=== PATIENT | female | born 1995 | race Caucasian/White ===

== ENCOUNTER 2017-08-07 22:19 | Emergency (ER) | payer OTHER ==
[2017-08-07] MEDS ORDERED: NS 1,000 ML IV ONE (22:52)
--- NOTE | 2017-08-07 22:52 | EDPHY ---
H & P Stated Complaint: RLQ abd pain for 3 days and bloating Time Seen by Provider: 08/07/17 22:51 HPI/ROS: HPI CHIEF COMPLAINT: Abdominal pain HISTORY OF PRESENT ILLNESS: Patient very pleasant 22-year-old female she is otherwise healthy does not take any daily medications except control she presents emergency room with abdominal pain. Patient reports over the last 2-3 days she has had increasing abdominal pain or lower abdomen with abdominal distention and right lower quadrant pain. Pain has gotten worse in her right lower quadrant. She denies any urinary symptoms, denies back pain, denies fever , denies vomiting she had normal bowel movement yesterday and today, additionally she has been eating. No history of ovarian cyst. Denies being . Last menstrual period was a few days ago. She has irregular menses. Past Medical History: Denies significant medical history Past Surgical History: Denies significant surgical history Social History: Denies daily use of drugs alcohol tobacco. Family History: Noncontributory ROS REVIEW OF SYSTEMS: A comprehensive 10 point review of systems is otherwise negative aside from elements mentioned in the history of present illness. Exam Constitutional triage nursing summary reviewed, vital signs reviewed, awake/ alert. Eyes normal conjunctivae and sclera, EOMI, PERRLA. HENT normal inspection, atraumatic, moist mucus membranes, no epistaxis, neck supple/ no meningismus, no raccoon eyes. Respiratory clear to auscultation bilaterally, normal breath sounds, no respiratory distress, no wheezing. Cardiovascular rate normal, regular rhythm, no murmur, no edema, distal pulses normal. Gastrointestinal tender palpation right lower quadrant, no peritoneal signs,, no rebound, no guarding, normal bowel sounds, no distension, no pulsatile mass. Genitourinary no CVA tenderness. Musculoskeletal no midline vertebral tenderness, full range of motion, no calf swelling, no tenderness of extremities, no meningismus, good pulses, neurovascularly intact. Skin pink, warm, & dry, no rash, skin atraumatic. Neurologic awake, alert and oriented x 3, AAOx3, moves all 4 extremities equally, motor intact, sensory intact, CN II-XII intact, normal cerebellar, normal vision, normal speech. Psychiatric normal mood/affect. Heme/Lymph/Immune no lymphadenopathy. Differential diagnosis includes but is not limited to and in no particular order : Bowel obstruction, appendicitis, gallbladder disease, diverticulitis, colitis , enteritis, perforated viscus, gastritis, GERD, esophagitis, urinary tract infection, pyelonephritis, kidney stones Medical Decision Making: Plan for this patient IV establishment IV fluid bolus , check basic blood work, urinalysis and electrolytes, CT scan abdomen pelvis with IV contrast rule out appendicitis. Check test. Re-evaluate. Re-evaluation: CT scan abdomen pelvis with IV contrast called to me by Dr. Joe Sin, this shows left ovarian cyst, additionally jejunum mid abdomen appears slightly inflamed possibly enteritis. However able to see the appendix and no evidence of acute appendicitis. I have updated the patient about her CT results. Will plan on a pelvic ultrasound to rule out left ovarian cyst. Hemorrhagic cyst. 0107: Spoke with OBGYN and discuss the case with her extensively. Discussed the ultrasound findings and images. She does not feel that this patient has ovarian torsion given that she is not writhing in pain and declined pain medicine here. She does not feel this patient has ovarian torsion given the history review of systems and exam. Ultrasound called to me by Dr. Griffin shows left large ovarian cyst. There is arterial blood flow. Concern for torsion given the size of the cyst. 0140: Re-evaluate the patient she is complaining of worsening pain I have ordered her IV Toradol for pain control. Spoke with OBGYN again Dr. Nascimento, will come and see and evaluate the patient in the ER. [id number]: Dr. Nascimento, has seen evaluated the patient emergency room. Patient is eager to be discharged wants to go home. Dr. Nascimento, does not feel that she is ovarian torsion feel safe that she can go home. She did see and examine interview her. I discussed all results with her. I recommend she returns emergency room she develops worsening abdominal pain fever vomiting. Follow up on outpatient basis with OBGYN for ovarian cyst. Return emergency room if there is worsening abdominal pain fever vomiting she understands Source: Patient - Personal History LMP (Females 10-55): 1-7 Days Ago Current Tetanus/Diphtheria Vaccine: Yes Current Tetanus Diphtheria and Acellular Pertussis (TDAP): Yes - Medical/Surgical History Hx Asthma: No Hx Chronic Respiratory Disease: No Hx Diabetes: No Hx Cardiac Disease: No Hx Renal Disease: No Hx Cirrhosis: No Hx Alcoholism: No Hx HIV/AIDS: No Hx Splenectomy or Spleen Trauma: No Other PMH: denies - Social History Smoking Status: Never smoked Constitutional: Initial Vital Signs Temperature (C) 37.3 C 08/07/17 22:22 Heart Rate 93 08/07/17 22:22 Respiratory Rate 16 08/07/17 22:22 Blood Pressure 113/69 08/07/17 22:22 O2 Sat (%) 97 08/07/17 22:22 O2 Delivery Mode Room Air Allergies/Adverse Reactions: cephalexin [From Keflex] Allergy (Verified 08/07/17 22:25) Penicillins Allergy (Verified 08/07/17 22:25) Home Medications: Medication Instructions Recorded Birthcontrol 08/07/17 Levothyroxine 08/07/17 Medical Decision Making - Diagnostics Imaging Results: Imaging Impressions Abdomen CT 08/07/17 22:56 Impression: 1. Mild wall thickening and mesenteric stranding associated with mesentery in the central abdomen, suggesting enteritis. 2. Indeterminant 5 cm complex cystic structure in the left adnexa which could be related to a hemorrhagic cyst, dermoid, or other etiology. Pelvic ultrasound is recommended for further evaluation. 3. Additional findings as above. Findings discussed with Rex Kumari MD 08/07/2017 at 23:58. - Data Points Laboratory Results: Laboratory Results 08/07/17 22:53 08/07/17 22:53 08/07/17 08/07/17 08/07/17 23:25 22:53 22:53 WBC RBC Hgb Hct MCV MCH MCHC RDW Plt Count MPV Neut % (Auto) Lymph % (Auto) Moody % (Auto) Eos % (Auto) Baso % (Auto) Nucleat RBC Rel Count Absolute Neuts (auto) Absolute Lymphs (auto) Absolute Monos (auto) Absolute Eos (auto) Absolute Basos (auto) Absolute Nucleated RBC Immature Gran % Immature Gran # PT INR APTT VBG Lactic Acid Sodium 138 mEq/L mEq/L (135-145) Potassium 4.2 mEq/L mEq/L (3.3-5.0) Chloride 99 mEq/L mEq/L (97-110) Carbon Dioxide 26 mEq/l mEq/l (22-31) Anion Gap 13 mEq/L mEq/L (8-16) BUN 11 mg/dL mg/dL (7-23) Creatinine 0.9 mg/dL mg/dL (0.6-1.0) Estimated GFR > 60 Glucose 103 mg/dL H mg/dL (70-100) Calcium 9.1 mg/dL mg/dL (8.5-10.4) Total Bilirubin 0.7 mg/dL mg/dL (0.1-1.4) Conjugated Bilirubin 0.4 mg/dL mg/dL (0.0-0.5) Unconjugated Bilirubin 0.3 mg/dL mg/dL (0.0-1.1) AST 21 IU/L IU/L (14-46) ALT 24 IU/L IU/L (9-52) Alkaline Phosphatase 73 IU/L IU/L (38-126) Total Protein 7.7 g/dL g/dL (6.3-8.2) Albumin 4.1 g/dL g/dL (3.5-5.0) Lipase 26 IU/L IU/L (23-300) Beta HCG, Qual NEGATIVE Urine Color YELLOW Urine Appearance CLEAR Urine pH 7.0 (5.0-7.5) Ur Specific Hanson 1.009 (1.002-1.030) Urine Protein NEGATIVE (NEGATIVE) Urine Ketones NEGATIVE (NEGATIVE) Urine Blood NEGATIVE (NEGATIVE) Urine Nitrate NEGATIVE (NEGATIVE) Urine Bilirubin NEGATIVE (NEGATIVE) Urine Urobilinogen NEGATIVE EU EU (0.2-1.0) Ur Leukocyte Esterase NEGATIVE (NEGATIVE) Urine Glucose NEGATIVE (NEGATIVE) 08/07/17 08/07/17 08/07/17 22:53 22:53 22:53 WBC 12.90 10^3/uL H 10^3/uL (3.80-9.50) RBC 4.17 10^6/uL L 10^6/uL (4.18-5.33) Hgb 13.0 g/dL g/dL (12.6-16.3) Hct 38.1 % % (38.0-47.0) MCV 91.4 fL fL (81.5-99.8) MCH 31.2 pg pg (27.9-34.1) MCHC 34.1 g/dL g/dL (32.4-36.7) RDW 13.2 % % (11.5-15.2) Plt Count 336 10^3/uL 10^3/uL (150-400) MPV 9.8 fL fL (8.7-11.7) Neut % (Auto) 80.5 % H % (39.3-74.2) Lymph % (Auto) 11.6 % L % (15.0-45.0) Moody % (Auto) 6.4 % % (4.5-13.0) Eos % (Auto) 0.8 % % (0.6-7.6) Baso % (Auto) 0.2 % L % (0.3-1.7) Nucleat RBC Rel Count 0.0 % % (0.0-0.2) Absolute Neuts (auto) 10.40 10^3/uL H 10^3/uL (1.70-6.50) Absolute Lymphs (auto) 1.49 10^3/uL 10^3/uL (1.00-3.00) Absolute Monos (auto) 0.82 10^3/uL H 10^3/uL (0.30-0.80) Absolute Eos (auto) 0.10 10^3/uL 10^3/uL (0.03-0.40) Absolute Basos (auto) 0.03 10^3/uL 10^3/uL (0.02-0.10) Absolute Nucleated RBC 0.00 10^3/uL 10^3/uL (0-0.01) Immature Gran % 0.5 % % (0.0-1.1) Immature Gran # 0.06 10^3/uL 10^3/uL (0.00-0.10) PT 12.9 SEC SEC (12.0-15.0) INR 0.95 (0.83-1.16) APTT 33.1 SEC SEC (23.0-38.0) VBG Lactic Acid 0.7 mmol/L mmol/L (0.7-2.1) Sodium Potassium Chloride Carbon Dioxide Anion Gap BUN Creatinine Estimated GFR Glucose Calcium Total Bilirubin Conjugated Bilirubin Unconjugated Bilirubin AST ALT Alkaline Phosphatase Total Protein Albumin Lipase Beta HCG, Qual Urine Color Urine Appearance Urine pH Ur Specific Hanson Urine Protein Urine Ketones Urine Blood Urine Nitrate Urine Bilirubin Urine Urobilinogen Ur Leukocyte Esterase Urine Glucose Medications Given: Discontinued Medications Sodium Chloride (Ns) 1,000 mls @ 0 mls/hr IV EDNOW ONE; Wide Open PRN Reason: Protocol Stop: 08/07/17 22:53 Last Admin: 08/07/17 23:19 Dose: 1,000 mls Ketorolac Tromethamine (Toradol) 15 mg IVP EDNOW ONE Stop: 08/08/17 01:29 Last Admin: 08/08/17 01:50 Dose: 15 mg Ondansetron HCl (Zofran) 4 mg IVP EDNOW ONE Stop: 08/08/17 01:52 Last Admin: 08/08/17 01:53 Dose: 4 mg Departure - Departure Disposition: Home, Routine, Self-Care Clinical Impression: Enteritis Abdominal pain Qualifiers: Abdominal location: unspecified location Qualified Code(s): R10.9 - Unspecified abdominal pain Ovarian cyst Qualifiers: Laterality: left Qualified Code(s): N83.202 - Unspecified ovarian cyst, left side Condition: Good Instructions: Ovarian Cyst (ED), Acute Abdominal Pain (ED) Additional Instructions: 1. Return emergency room if you have worsening abdominal pain fever vomiting. Referrals: NONE *PRIMARY CARE P,. [Primary Care Provider] - As per Instructions Gabriella Nascimento DO [Doctor of Osteopathy] - As per Instructions
[2017-08-07 23:03] LABS: PLATELET COUNT 336 10^3/uL (150-400)
[2017-08-07 23:13] LABS: INR 0.95 (0.83-1.16); PROTIME(PATIENT) 12.9 SEC (12.0-15.0)
[2017-08-07] MEDS ORDERED: IOPAMIDOL (ISOVUE-300) 100 ML BTL ONE (23:22)
[2017-08-08] MEDS ORDERED: KETOROLAC 15 MG/1 ML SDV IVP ONE (01:28)
[2017-08-08] MEDS ORDERED: ONDANSETRON 4 MG/2 ML VIAL IVP ONE (01:51)
[2017-08-08 02:59] VITALS: BP 108/65
--- NOTE | 2017-08-08 04:10 | GCON ---
[f rep st] CONSULTATION ER CONSULTATION DATE OF CONSULTATION: 08/08/2017 REASON FOR CONSULTATION: Abdominal pain with ovarian cyst. INDICATIONS: This patient is a 22-year-old 0, who presented to the emergency room with compl aint of a 3-day history of mild abdominal pain and bloating. Patient took ibuprofen once, but it has not been bad enough to need any medication since then. She states there are some episodes of the pa in getting worse; however, it has remained pretty constant over the last 3 days, so she decided to co me into the emergency room. The patient was asleep in her room when I came in. She had received Tor adol as the only pain medicine prior to being evaluated. Patient denies any nausea, vomiting, fevers , or chills. She denies any changes in her bowel habits. She denies any pain with urination. She i s not currently sexually active. The patient had imaging, which showed mild wall thickening and mese nteric stranding associated with the mesentery, possibly suggestive of enteritis and a 5 cm complex c ystic structure on the left adnexal. A pelvic ultrasound was performed, which showed a normal uterus , left ovarian cyst, possible ovarian torsion. MEDICAL HISTORY: Significant for hypothyroidism. MEDICATIONS: Levothyroxine and control pills. SURGICAL HISTORY: None. ALLERGIES: Penicillin and cephalexin. SOCIAL HISTORY: Patient is a student. She lives in [place]. She denies tobacco or drug use. S he does drink alcohol socially. FAMILY MEDICAL HISTORY: Noncontributory. OBSTETRICAL/GYNECOLOGIC HISTORY: Menarche age 14. She occasionally does not have periods because of her control pills. Otherwise are unremarkable off control pills. She is a 0. She denies any history of any sexually transmitted diseases. PHYSICAL EXAM: VITAL SIGNS: Stable. GENERAL APPEARANCE: Alert and oriented x3. PSYCH: Shows ap ropriate affect. MUSCULOSKELETAL: Grossly intact. NEURO: Mostly intact. NECK: Mobile and supple . HEART: Rate is regular, regular. LUNGS: Clear to auscultation bilaterally. ABDOMEN: Soft, non distended, nontender. EXTREMITIES: Reveal no calf tenderness or edema. PELVIC: Reveals a mobile m idposition uterus with no adnexal tenderness. LABS: Hemoglobin is 13, hematocrit is 38, white count is 12.9, platelets are 336. Urinalysis is neg ative. HCG is negative. REVIEW OF SYSTEMS: 10-point review of systems is negative with the exception of the above-mentioned pertinent positives. ASSESSMENT AND PLAN: 22-year-old 0 with abdominal pain and an ovarian cyst. I do not feel t hat this is gynecologic in origin, so other etiologies should be ruled out. The patient has a very b enign exam and was sound asleep when I entered the room. We discussed followup torsion precautions a nd follow up with us to re-evaluate the ovarian cyst in several weeks or to follow up with her gyneco logist when she is home on vacation next week. Indications to return were reviewed with the patient, and the patient will be discharged per emergency room physician. /[id number]/MODL
== END 2017-08-08 03:00 | disposition home or self-care (01) ==
DX: K52.9 Noninfective gastroenteritis and colitis, unspecified (principal); N83.202 Unspecified ovarian cyst, left side; E86.9 Volume depletion, unspecified
CPT/HCPCS: 96374; J1885; J2405; Q9967

== ENCOUNTER 2017-08-30 06:46 | Emergency (ER) | payer OTHER ==
[2017-08-30] MEDS ORDERED: NS 1,000 ML IV ONE (07:18)
[2017-08-30] MEDS ORDERED: LIDOCAINE 2% VISCOUS 15 ML UDCUP PO ONE (07:18)
[2017-08-30] MEDS ORDERED: FAMOTIDINE 20 MG/2 ML SDV IVP ONE (07:21)
[2017-08-30] MEDS ORDERED: LIDOCAINE 2% VISCOUS 15 ML UDCUP ONE (07:37)
--- NOTE | 2017-08-30 07:39 | EDPHY ---
H & P Stated Complaint: upper abd pain, nausea since Time Seen by Provider: 08/30/17 07:07 HPI/ROS: Chief Complaint: Upper abdominal pain HPI: 22-year-old woman, G0, last normal menstrual. Was 1 month ago. Patient is presenting with epigastric pain which has been present but worsening for the last 5 days. Some nausea but no vomiting. No diarrhea or constipation. No dark black bowel movements or blood in her stool. She was recently diagnosed a week and half ago with PID has been taking Flagyl and doxycycline since early last week. No fevers or chills. Pain does not radiate. ROS: 10 point Review of Systems is negative except as noted in the HPI. PMH: Denies Social History: No smoking, occasional alcohol, no recreational drug use Family History: non-contributory Physical Exam: Gen: Awake, Alert, No Distress HEENT: Nose: no rhinorrhea Eyes: PERRLA, EOMI Mouth: Moist mucosa Neck: Supple, no JVD Chest: nontender, lungs clear to auscultation Heart: S1, S2 normal, no murmur Abd: Soft, moderate epigastric tenderness, no right upper quadrant or lower abdominal tenderness. No pelvic tenderness., no guarding Back: no CVA tenderness, no midline tenderness Ext: no edema, non-tender Skin: no rash Neuro: CN II-XII intact, Sensation grossly intact, Strength 5/5 in bilateral upper and lower extremities - Personal History LMP (Females 10-55): Over 28 Days Ago Current Tetanus/Diphtheria Vaccine: Yes - Medical/Surgical History Hx Asthma: No Hx Chronic Respiratory Disease: No Hx Diabetes: No Hx Cardiac Disease: No Hx Renal Disease: No Hx Cirrhosis: No Hx Alcoholism: No Hx HIV/AIDS: No Hx Splenectomy or Spleen Trauma: No Other PMH: ovarian cyst - Social History Smoking Status: Never smoked Constitutional: Initial Vital Signs Temperature (C) 36.6 C 08/30/17 06:55 Heart Rate 89 08/30/17 06:55 Respiratory Rate 181 H 08/30/17 06:55 Blood Pressure 126/88 H 08/30/17 06:55 O2 Sat (%) 96 08/30/17 06:55 O2 Delivery Mode Room Air Allergies/Adverse Reactions: Penicillins Allergy (Verified 08/07/17 22:25) Home Medications: Medication Instructions Recorded Birthcontrol 08/07/17 Levothyroxine 08/07/17 Doxycycline Calcium 08/30/17 Flagyl 08/30/17 Medical Decision Making ED Course/Re-evaluation: 22-year-old female presenting with epigastric pain which has been intermittent and crampy since she started taking doxycycline for chlamydial infection. Her abdomen is soft and benign. Her blood work is completely unremarkable. She had a CT scan 2 weeks ago which was normal. She does have a known ovarian cyst with some possible infectious component. She has no adnexal tenderness whatsoever. Her lipase is normal. Her liver function is normal. She got relief here with IV Pepcid. No evidence of acute intra-abdominal infection or surgical process. Symptoms are consistent with abdominal discomfort from the doxycycline. We discussed this at length. She is comfortable with the plan to discharge to home. She will follow up with [facility] in 2-3 days for further evaluation. She will return for any concerns. - Data Points Laboratory Results: Laboratory Results 08/30/17 07:44 08/30/17 07:44 08/30/17 08/30/17 08/30/17 07:44 07:44 07:44 WBC 8.16 10^3/uL 10^3/uL (3.80-9.50) RBC 4.01 10^6/uL L 10^6/uL (4.18-5.33) Hgb 12.5 g/dL L g/dL (12.6-16.3) Hct 37.0 % L % (38.0-47.0) MCV 92.3 fL fL (81.5-99.8) MCH 31.2 pg pg (27.9-34.1) MCHC 33.8 g/dL g/dL (32.4-36.7) RDW 13.2 % % (11.5-15.2) Plt Count 296 10^3/uL 10^3/uL (150-400) MPV 9.6 fL fL (8.7-11.7) Neut % (Auto) 59.5 % % (39.3-74.2) Lymph % (Auto) 25.0 % % (15.0-45.0) Faulk % (Auto) 12.3 % % (4.5-13.0) Eos % (Auto) 2.2 % % (0.6-7.6) Baso % (Auto) 0.5 % % (0.3-1.7) Nucleat RBC Rel Count 0.0 % % (0.0-0.2) Absolute Neuts (auto) 4.86 10^3/uL 10^3/uL (1.70-6.50) Absolute Lymphs (auto) 2.04 10^3/uL 10^3/uL (1.00-3.00) Absolute Monos (auto) 1.00 10^3/uL H 10^3/uL (0.30-0.80) Absolute Eos (auto) 0.18 10^3/uL 10^3/uL (0.03-0.40) Absolute Basos (auto) 0.04 10^3/uL 10^3/uL (0.02-0.10) Absolute Nucleated RBC 0.00 10^3/uL 10^3/uL (0-0.01) Immature Gran % 0.5 % % (0.0-1.1) Immature Gran # 0.04 10^3/uL 10^3/uL (0.00-0.10) Sodium 136 mEq/L mEq/L (135-145) Potassium 4.2 mEq/L mEq/L (3.3-5.0) Chloride 108 mEq/L mEq/L (97-110) Carbon Dioxide 23 mEq/l mEq/l (22-31) Anion Gap 5 mEq/L L mEq/L (8-16) BUN 22 mg/dL mg/dL (7-23) Creatinine 0.9 mg/dL mg/dL (0.6-1.0) Estimated GFR > 60 Glucose 89 mg/dL mg/dL (70-100) Calcium 8.9 mg/dL mg/dL (8.5-10.4) Total Bilirubin 0.4 mg/dL mg/dL (0.1-1.4) AST 32 IU/L IU/L (14-46) ALT 50 IU/L IU/L (9-52) Alkaline Phosphatase 63 IU/L IU/L (38-126) Total Protein 7.1 g/dL g/dL (6.3-8.2) Albumin 3.7 g/dL g/dL (3.5-5.0) Lipase 52 IU/L IU/L (23-300) Beta HCG, Qual NEGATIVE Medications Given: Discontinued Medications Famotidine (Pepcid) 20 mg IVP EDNOW ONE Stop: 08/30/17 07:22 Last Admin: 08/30/17 07:50 Dose: 20 mg Sodium Chloride (Ns) 1,000 mls @ 0 mls/hr IV ONCE ONE; Wide Open PRN Reason: Protocol Stop: 08/30/17 07:19 Last Admin: 08/30/17 07:50 Dose: 1,000 mls Lidocaine (Lidocaine 2% Viscous) 15 ml PO ONCE ONE Stop: 08/30/17 07:19 Last Admin: 08/30/17 07:51 Dose: 15 ml Departure - Departure Disposition: Home, Routine, Self-Care Clinical Impression: Abdominal pain, Medication adverse effect Condition: Good Instructions: Abdominal Pain (ED) Additional Instructions: You may take acetaminophen as needed for pain. I recommend he begin taking famotidine [id number] for her discomfort. Follow up at [facility] in 2-3 days for further evaluation. Return to the emergency department for increasing abdominal pain, nausea vomiting, fevers, chills, dark black bowel movements, or any other concerns. Referrals: [facility] ,. [Clinic] - As per Instructions
[2017-08-30 07:52] LABS: PLATELET COUNT 296 10^3/uL (150-400)
[2017-08-30 09:52] VITALS: BP 111/75
== END 2017-08-30 09:54 | disposition home or self-care (01) ==
DX: R10.13 Epigastric pain (principal); T36.4X5A Adverse effect of tetracyclines, initial encounter; E86.9 Volume depletion, unspecified
CPT/HCPCS: 96374